=== PATIENT | male | born 1965 | race Caucasian/White ===

== ENCOUNTER 2017-10-12 20:10 | Emergency (ER) | payer OTHER ==
[2017-10-12] MEDS ORDERED: Ondansetron 4 MG/2 ML SDV IVPUSH ONE (20:28)
[2017-10-12] MEDS ORDERED: fentaNYL 100 MCG/2 ML SDV IVPUSH ONE ×2 (20:28→21:05)
[2017-10-12] MEDS ORDERED: fentaNYL 250 MCG/5 ML SDV IVPUSH ONE (20:51)
--- NOTE | 2017-10-12 21:24 | EDM.PDOC ---
ED HPI GENERAL MEDICAL PROBLEM - General Chief Complaint: General Stated Complaint: R SHOULDER DISLOCATION Time Seen by Provider: 10/12/17 20:28 Source of Information: Reports: Patient History Limitations: Reports: No Limitations - History of Present Illness INITIAL COMMENTS - FREE TEXT/NARRATIVE: Patient suspects right shoulder dislocation which occurred while he was working with metal sheets with arms overhead/hyperextended. No complaints of numbness/tingling involving injured arm. No other complaints. History of previous shoulder dislocation but cannot remember if it was same arm. - Related Data Allergies Allergy/AdvReac Type Severity Reaction Status Date / Time No Known Allergies Allergy Verified 10/12/17 20:27 Home Meds: Home Meds . [No Known Home Meds] 10/12/17 [History] Past Medical History Musculoskeletal History: Reports: Other (See Below) (previous shoulder dislocation) Social & Family History - Tobacco Use Smoking Status *Q: Never Smoker (denies smoking. Said to staff that he wouldn't admit to smoking even if he did smoke.) - Alcohol Use Alcohol Use History: Yes ED ROS GENERAL - Review of Systems Review Of Systems: ROS reveals no pertinent complaints other than HPI. ED EXAM, GENERAL - Physical Exam Exam: See Below Exam Limited By: No Limitations General Appearance: Alert, WD/WN, Moderate Distress Eye Exam: Bilateral Eye: EOMI, PERRL Head: Atraumatic, Normocephalic Neck: Normal Inspection, Supple, Full Range of Motion Respiratory/Chest: No Respiratory Distress, Lungs Clear, Normal Breath Sounds, No Accessory Muscle Use Cardiovascular: Normal Peripheral Pulses, Regular Rate, Rhythm, No Murmur Peripheral Pulses: 2+: Radial (L), Radial (R) GI/Abdominal: Soft, Non-Tender Extremities: Normal Capillary Refill, Limited Range of Motion (right shoulder). No: Mottled, Pallor Neurological: Alert, Oriented, Normal Cognition, Normal Gait, Other (sensation intact right arm) Psychiatric: Anxious Skin Exam: Warm, Dry, Intact, Normal Color ED GENERAL MEDICAL PROCEDURES - Joint Reduction Site: Shoulder (R) Sedation: Conscious Sedation Pre-procedure NV status: Normal Post-procedure NV status: Normal Technique: Other (Caroline Technique) Number of Attempts: 1 Post-Reduction Imaging: Completely Reduced, No Fracture Seen Joint Reduction Complications: No Course - Vital Signs Last Recorded V/S: Last Vital Signs Temp 36.6 C 10/12/17 20:14 Pulse 65 10/12/17 21:25 Resp 16 10/12/17 21:25 BP 127/97 H 10/12/17 21:25 Pulse Ox 98 10/12/17 21:25 - Orders/Labs/Meds Orders: Active Orders 24 hr Category Date Time Status Shoulder 1V Rt [CR] Stat Exams 10/12/17 21:18 Taken Shoulder Comp Lt [CR] Stat Exams 10/12/17 21:17 Stop Req Shoulder Comp Rt [CR] Stat Exams 10/12/17 20:12 Taken Peripheral IV Insertion Adult [OM.PC] Routine Oth 10/12/17 21:26 Ordered Saline Lock Insert [OM.PC] Routine Oth 10/12/17 21:26 Ordered Meds: Medications Discontinued Medications Generic Name Dose Route Start Last Admin Trade Name Freq PRN Reason Stop Dose Admin Diazepam 2.5 mg 10/12/17 20:51 10/12/17 20:57 Valium IVPUSH 10/12/17 20:52 2.5 mg ONETIME ONE Administration Fentanyl 100 mcg 10/12/17 20:28 10/12/17 20:33 Sublimaze IVPUSH 10/12/17 20:29 100 mcg ONETIME ONE Administration Fentanyl 250 mcg 10/12/17 20:51 10/12/17 21:07 Sublimaze IVPUSH 10/12/17 20:52 Not Given ONETIME ONE Fentanyl 100 mcg 10/12/17 21:05 10/12/17 21:08 Sublimaze IVPUSH 10/12/17 21:06 100 mcg ONETIME ONE Administration Ketorolac Tromethamine 30 mg 10/12/17 21:56 Toradol IVPUSH 10/12/17 21:57 ONETIME ONE Ondansetron HCl 4 mg 10/12/17 20:28 10/12/17 20:33 Zofran IVPUSH 10/12/17 20:29 4 mg ONETIME ONE Administration - Radiology Interpretation Free Text/Narrative:: Initial films confirmed anterior shoulder dislocation. Film taken after reduction attempt showed shoulder reduced. Possible small chip noted at bottom of glenoid. - Re-Assessments/Exams Free Text/Narrative Re-Assessment/Exam: 10/12/17 21:22 Initial xrays confirmed dislocation of right shoulder. Caroline technique performed using two 10# hand weights. Patient given Fentanyl and Valium. Shoulder reduced. Post reduction films performed. Patient placed in shoulder immobilizer. Free Text/Narrative Re-Assessment/Exam: 10/12/17 22:04 Patient observed in ER on O2 monitor due to sedation that was given for shoulder reduction procedure. Awake, talkative. Vital signs stable. BP improved. Will be sent home with to go bottle of Tramadol. To follow up with clinic Tuesday for recheck and further pain meds as needed. Departure - Departure Time of Disposition: 22:30 Disposition: Home, Self-Care 01 Condition: Good Clinical Impression: Dislocation of shoulder, right, closed Qualifiers: Encounter type: initial encounter Qualified Code(s): S43.004A - Unspecified dislocation of right shoulder joint, initial encounter - Discharge Information Instructions: Diazepam injection, Fentanyl injection, Shoulder Dislocation, [id number], How to Use a Shoulder Immobilizer Referrals: Will Jacome MD [Primary Care Provider] - Forms: ED Department Discharge Additional Instructions: Call tomorrow to make appointment to follow up in clinic Tuesday for recheck and additional pain meds if needed. Follow up otherwise as needed if problems arise. You should not drink alcohol tonight. It is not a good mix with the medications you were given in the ER. - My Orders Last 24 Hours: My Active Orders 10/12/17 20:12 Shoulder Comp Rt [CR] Stat 10/12/17 21:17 Shoulder Comp Lt [CR] Stat 10/12/17 21:18 Shoulder 1V Rt [CR] Stat 10/12/17 21:26 Peripheral IV Insertion Adult [OM.PC] Routine Saline Lock Insert [OM.PC] Routine - Assessment/Plan Last 24 Hours: My Active Orders 10/12/17 20:12 Shoulder Comp Rt [CR] Stat 10/12/17 21:17 Shoulder Comp Lt [CR] Stat 10/12/17 21:18 Shoulder 1V Rt [CR] Stat 10/12/17 21:26 Peripheral IV Insertion Adult [OM.PC] Routine Saline Lock Insert [OM.PC] Routine
[2017-10-12] MEDS ORDERED: Ketorolac 30 MG/ML SDV IVPUSH ONE (21:56)
[2017-10-12] MEDS ORDERED: Ketorolac 60 MG/2 ML SDV IM ONE (22:08)
== END 2017-10-12 22:30 | disposition home or self-care (01) ==
LOC: LL.ED 20:10
DX: S43.004A Unspecified dislocation of right shoulder joint, initial encounter (principal); X50.9XXA Other and unspecified overexertion or strenuous movements or postures, initial encounter; Y99.0 Civilian activity done for income or pay
CPT/HCPCS: 23650; 73020-RT; 73030-RT; 96372; 96374; 96375; 99283; J1885; J2405; J3010; J3360

== ENCOUNTER 2022-05-06 07:49 | Day surgery (SDC) | payer BC, OTHER ==
[~2022-05-06 07:49] MED LIST: Propofol 200 MG/20 ML SDV ONE; fentaNYL 100 MCG/2 ML SDV ONE
[2022-05-06] MEDS ORDERED: Lactated Ringers 1,000 ML IV SCH (08:00)
[2022-05-06] MEDS ORDERED: Sodium Chloride 0.9% 10 ML Syringe FLUSH PRN (08:00)
[2022-05-06] MEDS ORDERED: ceFAZolin 1 GM Vial IVPUSH ONE (09:00)
[2022-05-06] MEDS ORDERED: Propofol 200 MG/20 ML SDV IV ONE (09:00)
[2022-05-06] MEDS ORDERED: Lidocaine 2% 100 MG/5 ML Syringe IVPUSH ONE (09:00)
[2022-05-06] MEDS ORDERED: Ondansetron 4 MG/2 ML SDV IVPUSH ONE (09:00)
[2022-05-06] MEDS ORDERED: fentaNYL 50 MCG/ML SDV IVPUSH PRN (09:00)
[2022-05-06] MEDS ORDERED: Dexamethasone 10 MG/ML SDV IVPUSH ONE (09:00)
[2022-05-06] MEDS ORDERED: Propofol 200 MG/20 ML SDV ONE (09:15)
[2022-05-06] MEDS ORDERED: Bupivacaine 0.5% 10 ML SDV INJECT ONE (09:26)
[2022-05-06] MEDS ORDERED: Bacitracin Oint 1 GM U/D Packet TOP ONE (09:53)
[2022-05-07] MEDS ORDERED: fentaNYL 100 MCG/2 ML SDV IVPUSH PRN (16:09)
== END 2022-05-06 11:20 | disposition home or self-care (01) ==
LOC: LL.SDS 07:49
PROVIDERS: ATTEND Surgery
DX: N48.9 Disorder of penis, unspecified (principal); L90.5 Scar conditions and fibrosis of skin; Z79.899 Other long term (current) drug therapy
CPT/HCPCS: J0690; J1100; J2405; J2704; J3010; J3490; J7120